=== PATIENT | male | born 1945 | race Caucasian/White ===

== ENCOUNTER 2019-08-01 16:08 | Emergency (ER) | payer MEDICARE, OTHER ==
[~2019-08-01] VITALS: Ht 167.6 cm; Wt 96.2 kg
[2019-08-01] MEDS ORDERED: FLOMAX0.4 MG PO (17:04)
[2019-08-01] MEDS ORDERED: PRAVACHOL40 M1 PO (17:05)
[2019-08-01 17:44] LABS: ABSOLUTE EOSINOPHILS 0.2 thou/uL (0.0-0.7); ABSOLUTE LYMPHOCYTES 0.9 thou/uL (0.8-5.3); ABSOLUTE MONOCYTES 0.7 thou/uL (0.0-1.2); ABSOLUTE NEUTROPHILS 3.2 thou/uL (1.6-8.1); BASOPHILS 0.9 %; EOSINOPHILS 3.6 %; HEMATOCRIT 46.2 % (42.0-52.0); HEMOGLOBIN 15.4 gm/dL (14.0-18.0); LYMPHOCYTES 17.4 %; MCH 29.4 pg (26.0-34.0); MCHC 33.3 g/dL (28.0-37.0); MCV 88.1 fL (80.0-100.0); MONOCYTES 14.5 %; NUCLEATED RBCS 0 /100WBC; PLATELET COUNT* 161 thou/uL (150-400); POLYS 63.6 %; RBC 5.25 mil/uL (4.50-6.00)
[2019-08-01 17:58] LABS: CALCIUM 8.7 mg/dL (8.5-10.1); CREATININE 1.3 mg/dL (0.6-1.3); POTASSIUM 4.3 mmol/L (3.5-5.1)
[2019-08-01 18:09] LABS: ALBUMIN 4.1 g/dL (3.4-5.0); TOTAL BILIRUBIN 0.5 mg/dL (<0.1-1.0)
[2019-08-01] MEDS ORDERED: MEDROLDOSEPACK PO (18:24)
[2019-08-01] MEDS ORDERED: AZITHROMYCIN 2250 MG PO (18:24)
[2019-08-01] MEDS ORDERED: VENTOLIN HFA 1818 GM INH (18:24)
[2019-08-01 18:47] LABS: INFLUENZA A ANTIGEN Negative (Negative); INFLUENZA B ANTIGEN Negative (Negative)
[2019-08-01 18:55] VITALS: BP 127/79
--- NOTE | 2019-08-02 10:30 | EKG ---
[place] [address] ELECTROCARDIOGRAM REPORT Name: DEVI TREJO Room: [facility]#: [id number] Admission: 08/01/19 Attend Phys: Discharge: 08/01/19 Date of : 49 Report #: [id number] THIS REPORT FOR: //name// [facility] ED Test Date: 2019-08-01 Test Time: 17:36:03 Pat Name: DEVI TREJO Department: Room: Gender: M Bicycle Repairman: : 1945 Requested By: Musa Burnette Order Number: [id number] MD: Joel Stark Measurements Intervals [place] Rate: 80 P: 36 CT: 150 QRS: 45 QRSD: 100 T: 47 QT: 385 QTc: 445 Interpretive Statements Sinus rhythm Nonspecific T abnormalities, anterior leads Baseline wander in lead(s) I,V1,V2,V3 No previous ECG available for comparison Electronically Signed On 08-02-2019 10:30:30 REIMBURSEMENT SPEC by Joel Stark [email or web address] <ELECTRONICALLY SIGNED> By: Joel Stark MD, [facility] 08/02/19 1030 173 173 Joel Stark MD, FACC /EPI
== END 2019-08-01 18:56 | disposition home or self-care (01) ==
LOC: M.ERS 16:08
PROVIDERS: Emergency Medicine
DX: J18.9 Pneumonia, unspecified organism (principal); E78.00 Pure hypercholesterolemia, unspecified; Z88.0 Allergy status to penicillin

== ENCOUNTER → 2019-08-01 | Outpatient (CLI) | payer MEDICARE, OTHER ==
[~2019-08-01] MED LIST: AZITHROMYCIN 2250 MG PO; FLOMAX0.4 MG PO; MEDROLDOSEPACK PO; PRAVACHOL40 M1 PO; VENTOLIN HFA 1818 GM INH
== END ==
LOC: M.CT 10:30
DX: R91.8 Other nonspecific abnormal finding of lung field (principal)

== ENCOUNTER → 2019-10-31 | Outpatient (CLI) | payer MEDICARE, OTHER ==
[2019-10-31 10:03] LABS: CREATININE 1.1 mg/dL (0.6-1.3)
== END ==
LOC: M.LAB 09:39 → M.CT 11:00
DX: J43.9 Emphysema, unspecified (principal); R91.1 Solitary pulmonary nodule

== ENCOUNTER 2021-07-13 12:51 | Inpatient (IN) | payer MEDICARE ==
[~2021-07-13] VITALS: Ht 170.2 cm; Wt 95.3 kg
[2021-07-13 13:06] VITALS: BP 140/84
[2021-07-13] MEDS ORDERED: FOLIC ACID1 MG PO (13:09)
[2021-07-13] MEDS ORDERED: D3-200050 MCG PO (13:09)
[2021-07-13] MEDS ORDERED: FISH OIL 1,0001 EAC9 PO (13:09)
[2021-07-13] MEDS ORDERED: ASPIRIN EC81 M1 PO (13:09)
[2021-07-13] MEDS ORDERED: MAGNESIUM250 M1 PO (13:10)
[2021-07-13] MEDS ORDERED: ZINC50 M2 PO (13:10)
[2021-07-13] MEDS ORDERED: ALEVE220 MG PO (13:10)
[2021-07-13 13:23] LABS: ABSOLUTE LYMPHOCYTES 0.9 thou/uL (0.8-5.3); ABSOLUTE MONOCYTES 0.6 thou/uL (0.0-1.2); ABSOLUTE NEUTROPHILS 5.3 thou/uL (1.6-8.1); BASOPHILS 0.2 %; EOSINOPHILS 0.5 %; HEMATOCRIT 42.5 % (42.0-52.0); HEMOGLOBIN 14.6 gm/dL (14.0-18.0); LYMPHOCYTES 13.3 %; MCHC 34.4 g/dL (28.0-37.0); MCV 84.5 fL (80.0-100.0); MONOCYTES 8.2 %; MPV 7.3 fl. (7.2-11.1); NUCLEATED RBCS 0 /100WBC; PLATELET COUNT* 222 thou/uL (150-400); POLYS 77.8 %; RBC 5.03 mil/uL (4.50-6.00); RDW-CV 13.8 % (10.5-14.5); WBC 6.9 thou/uL (4.0-11.0)
[2021-07-13 13:57] LABS: ALBUMIN 2.5 g/dL (3.4-5.0); CALCIUM 8.6 mg/dL (8.5-10.1); CREATININE 1.1 mg/dL (0.6-1.3); TOTAL BILIRUBIN 1.7 mg/dL (<0.1-1.0); TOTAL PROTEIN 7.4 g/dL (6.4-8.2)
[2021-07-13 14:03] LABS: URINE BLOOD NEGATIVE (Negative); URINE CLARITY CLEAR; URINE COLOR YELLOW; URINE GLUCOSE-RANDOM NEGATIVE (Negative); URINE KETONES TRACE (Negative); URINE LEUKOCYTES-REFLEX NEGATIVE (Negative); URINE NITRITE-REFLEX NEGATIVE (Negative); URINE PROTEIN 2+ (Negative); URINE SPECIFIC GRAVITY 1.015 (1.005-1.030)
[2021-07-13 14:11] LABS: URINE BILIRUBIN 1+ (Negative)
[2021-07-13 14:18] LABS: MUCUS 0-3 Light strn/LPF (None Seen); SQUAMOUS 0-3 Few /LPF (0-3); URINE RBC 0-2 Rare /HPF (0-2); URINE WBC-REFLEX 0-5 Rare /HPF (0-5)
[2021-07-13 14:23] LABS: BACTERIA-REFLEX None Seen /HPF (None Seen); CASTS None Seen /LPF (None Seen); CRYSTALS None Seen /LPF (None Seen)
--- NOTE | 2021-07-13 15:05 | NUR ---
CALLED CHRISTINA TREJO AND GAVE UP DATE ON DEVI.
--- NOTE | 2021-07-13 15:39 | EKG ---
[place] [address] ELECTROCARDIOGRAM REPORT Name: DEVI TREJO Room: [place] [address] ADM IN [facility]#: [id number] Admission: 07/13/21 Attend Phys: Moustapha Linton, Discharge: Date of : 49 Date of Service: 07/13/21 1313 Report #: [id number] THIS REPORT FOR: //name// [facility] ED Test Date: 2021-07-13 Test Time: 13:13:53 Pat Name: DEVI TREJO Department: Room: [facility] Gender: M Line Out Man: PADMA : 1945 Requested By: Aron Moncada Order Number: [id number] MD: Joel Stark Measurements Intervals [place] Rate: 74 P: 48 RI: 163 QRS: 11 QRSD: 89 T: 49 QT: 377 QTc: 419 Interpretive Statements Sinus arrhythmia nonspecific t wave changes Baseline wander in lead(s) III Compared to ECG 08/01/2019 17:36:03 no change Electronically Signed On 07-13-2021 15:39:33 RADIO ENGINEER by Joel Stark [email or web address] <ELECTRONICALLY SIGNED> By: Joel Stark MD, FAC 07/13/21 1539 1313 1313 Joel Stark MD, [facility] /EPI
[2021-07-13 17:52] LABS: INFLUENZA A ANTIGEN Negative (Negative); INFLUENZA B ANTIGEN Negative (Negative)
[2021-07-13 18:25] VITALS: BP 124/73
[2021-07-14 00:01] VITALS: BP 119/89
--- NOTE | 2021-07-14 00:55 | NUR ---
PATIENT PLACED IN HOSPITAL BED
[2021-07-14 03:36] LABS: ABSOLUTE LYMPHOCYTES 0.7 thou/uL (0.8-5.3); ABSOLUTE MONOCYTES 0.4 thou/uL (0.0-1.2); BASOPHILS 0.4 %; HEMATOCRIT 41.7 % (42.0-52.0); HEMOGLOBIN 14.4 gm/dL (14.0-18.0); LYMPHOCYTES 13.5 %; MCH 29.5 pg (26.0-34.0); MCHC 34.6 g/dL (28.0-37.0); MCV 85.5 fL (80.0-100.0); MONOCYTES 8.4 %; MPV 6.8 fl. (7.2-11.1); NUCLEATED RBCS 0 /100WBC; PLATELET COUNT* 256 thou/uL (150-400); POLYS 77.7 %; RBC 4.88 mil/uL (4.50-6.00); WBC 5.1 thou/uL (4.0-11.0)
[2021-07-14 03:58] LABS: CALCIUM 8.7 mg/dL (8.5-10.1); CREATININE 1.1 mg/dL (0.6-1.3); POTASSIUM 4.6 mmol/L (3.5-5.1)
--- NOTE | 2021-07-14 07:35 | NUR ---
PT GIVEN HEART HEALTHY DIET BREAKFAST TRAY AT THIS TIME.
--- NOTE | 2021-07-14 08:19 | NUR ---
PT ORIENTED TO ROOM AND UNIT, BED LOW AND LOCKED, SIDE RAILS UPX3, CALL LIGHT IN REACH, TELE APPLIED. WILL CONTINUE TO ASSESS.
[2021-07-14 08:43] VITALS: BP 125/81
--- NOTE | 2021-07-14 10:25 | NUR ---
Infection Control: Per [facility] patient had a positive Covid PCR test on 07/05/21.
[2021-07-14 12:00] VITALS: BP 131/81
--- NOTE | 2021-07-14 14:14 | NUR ---
PT OXYEN REQUIREMENT INCREASE TO 4LNC. OBTAIN PULMONARY CONSULT AND WILL HAVE RT INSTRUCT ON USE OF INCENTIVE SPIROMETER.
[2021-07-14 16:00] VITALS: BP 126/82
[2021-07-14 20:00] VITALS: BP 153/85
[2021-07-15 00:45] VITALS: BP 140/89
[2021-07-15 04:00] VITALS: BP 120/69
[2021-07-15 04:13] LABS: APTT 26.4 Seconds (25.0-31.3); PROTIME 10.5 Seconds (9.20-11.50)
[2021-07-15 04:29] LABS: ALBUMIN 2.8 g/dL (3.4-5.0); CALCIUM 8.6 mg/dL (8.5-10.1); CREATININE 1.2 mg/dL (0.6-1.3); MAGNESIUM 2.1 mg/dL (1.8-2.4); POTASSIUM 4.4 mmol/L (3.5-5.1); TOTAL BILIRUBIN 1.3 mg/dL (<0.1-1.0); TOTAL PROTEIN 6.6 g/dL (6.4-8.2)
[2021-07-15 04:31] LABS: ABSOLUTE LYMPHOCYTES 1.4 thou/uL (0.8-5.3); ABSOLUTE MONOCYTES 0.8 thou/uL (0.0-1.2); ABSOLUTE NEUTROPHILS 5.5 thou/uL (1.6-8.1); BASOPHILS 0.1 %; HEMATOCRIT 40.7 % (42.0-52.0); HEMOGLOBIN 13.9 gm/dL (14.0-18.0); LYMPHOCYTES 17.8 %; MCH 29.2 pg (26.0-34.0); MCHC 34.3 g/dL (28.0-37.0); MCV 85.2 fL (80.0-100.0); MONOCYTES 10.4 %; MPV 7.3 fl. (7.2-11.1); NUCLEATED RBCS 0 /100WBC; POLYS 71.7 %; RBC 4.78 mil/uL (4.50-6.00); RDW-CV 13.9 % (10.5-14.5); WBC 7.6 thou/uL (4.0-11.0)
--- NOTE | 2021-07-15 04:50 | NUR ---
PT ALERT AND ORIENTED, RESTING COMFORTABLY IN BED, OXYGEN AT 4L-NC AT 92-93%. HE IS UP AD NAOMI TO RESTROOM AND VERY STABLE. NO COMPLAINTS OF PAIN/NAUSEA/VOMITING. HE RECEIVED ABX AND MEDS SCHEDULED. NPO SINCE MIDNIGHT. WILL CONTINUE TO MONITOR.
[2021-07-15 05:28] LABS: PLATELET COUNT* 333 thou/uL (150-400)
[2021-07-15 08:00] VITALS: BP 109/78
--- NOTE | 2021-07-15 10:06 | NUR ---
UPDATED PTS VIA PHONE CALL. ANSWERED ALL QUESTIONS.
[2021-07-15 12:29] VITALS: BP 129/76
[2021-07-15 16:07] VITALS: BP 111/74
--- NOTE | 2021-07-15 18:09 | NUR ---
UPDATED PTS VIA PHONE. ANSWERED ALL QUESTIONS. PTS HAD THIS RN ON SPEAKER WITH PTS SON, UPDATED WELL W PT PERMISSION
--- NOTE | 2021-07-15 18:12 | NUR ---
PT BETWEEN 3-4L O2 THIS SHIFT VIA NC. UP AD NAOMI. NO CHANGES IN ORIENTATION OR RHYTHM. PLAN CONTINUE TO WEAN O2 ABLE, ENCOURAGE INCENTIVE SPIROMETER, AMBULATE. PT HSC ON D/C
[2021-07-15 20:00] VITALS: BP 121/79
[2021-07-16] VITALS (7 sets, daily range): BP systolic 103–144; BP diastolic 65–85
[2021-07-16 04:03] LABS: ABSOLUTE LYMPHOCYTES 1.4 thou/uL (0.8-5.3); ABSOLUTE MONOCYTES 0.8 thou/uL (0.0-1.2); ABSOLUTE NEUTROPHILS 4.7 thou/uL (1.6-8.1); BASOPHILS 0.1 %; EOSINOPHILS 0.1 %; HEMATOCRIT 38.7 % (42.0-52.0); HEMOGLOBIN 13.1 gm/dL (14.0-18.0); LYMPHOCYTES 19.7 %; MCH 29.1 pg (26.0-34.0); MCV 85.7 fL (80.0-100.0); MPV 7.1 fl. (7.2-11.1); NUCLEATED RBCS 0 /100WBC; PLATELET COUNT* 329 thou/uL (150-400); POLYS 68.1 %; RBC 4.52 mil/uL (4.50-6.00); RDW-CV 13.8 % (10.5-14.5); WBC 6.9 thou/uL (4.0-11.0)
[2021-07-16 04:14] LABS: ALBUMIN 2.6 g/dL (3.4-5.0); CALCIUM 8.6 mg/dL (8.5-10.1); CREATININE 1.3 mg/dL (0.6-1.3); POTASSIUM 4.3 mmol/L (3.5-5.1); TOTAL BILIRUBIN 1.3 mg/dL (<0.1-1.0); TOTAL PROTEIN 6.4 g/dL (6.4-8.2)
[2021-07-16 04:25] LABS: PREALBUMIN 20.3 mg/dL (18.0-35.7)
--- NOTE | 2021-07-16 04:57 | NUR ---
PT ALERT AND ORIENTED, 3L-O2 NC. RECEIVED ALL MEDS/ABX SCHEDULED. HE SLEPT VERY WELL THIS SHIFT. NO REPORTS OF ANY PAIN N/V. HE IS UP AD NAOMI TO RESTROOM
--- NOTE | 2021-07-16 07:56 | NUR ---
THIS RN WENT INTO PTS ROOM FOR AM VITALS. HE EXPLAINED TO THIS RN THAT AROUND 6 TO 6:30 AM, PRIOR TO THIS RN SHIFT AND STILL ON MANAGER BENEFIT, HE 'PASSED OUT IN THE BATHROOM, WOKE UP ON THE GROUND HALF IN THE SHOWER, BY THE SINK.' PT STATED HE DID NOT THINK HE HIT HIS HEAD BUT WAS UNSURE. ALERT, ORIENTED X4. ASSESSMENT UNCHANGED FROM PRIOR SHIFT EXCEPT FOR SKIN TEAR L FOREARM, DRIED, NOT ACTIVELY BLEEDING. LAILA, RAIL SIGNAL DESIGNER NOTIFIED. PTS WAS ON THE PHONE WITH PT WHILE PT TOLD THIS RN; THEREFORE IS NOTIFEID. DR PARKS PAGED AT THIS TIME.
--- NOTE | 2021-07-16 11:22 | NUR ---
PTS FIRST POSITIVE COVID TEST WAS ON JUL 05, THEREFORE OUT OF ISOLATION. DIETARY NOTIFEID. PT NOTIFIED. SUPERVISOR WOOL SHEARING GOYO NOTIFIED.
[2021-07-16 15:48] LABS: CALCIUM 8.7 mg/dL (8.5-10.1); CREATININE 1.2 mg/dL (0.6-1.3); POTASSIUM 4.6 mmol/L (3.5-5.1)
--- NOTE | 2021-07-16 18:17 | NUR ---
NO ACUTE CHANGES THIS SHIFT. PT REMAINS ON 4L O2. NO BRADYCARDIA EVENTS ON TELE. PT OUT OF ISOLATION THIS SHIFT, CAME TO VISIT. PLAN FOR LABS, CXR IN AM, WALKING O2 STUDY, AND POSSIBLE D/C TOMORROW.
[2021-07-16 23:06] LABS: MYCOPLASMA PNEUMONIA IgG 267 U/mL (0-99); MYCOPLASMA PNEUMONIA IgM <770 U/mL (0-769)
[2021-07-17 00:24] VITALS: BP 151/70
[2021-07-17 04:20] LABS: ABSOLUTE LYMPHOCYTES 1.4 thou/uL (0.8-5.3); ABSOLUTE NEUTROPHILS 5.7 thou/uL (1.6-8.1); BASOPHILS 0.1 %; EOSINOPHILS 0.1 %; HEMATOCRIT 37.2 % (42.0-52.0); HEMOGLOBIN 12.7 gm/dL (14.0-18.0); LYMPHOCYTES 17.5 %; MCH 28.9 pg (26.0-34.0); MCHC 34.2 g/dL (28.0-37.0); MCV 84.6 fL (80.0-100.0); MONOCYTES 11.9 %; MPV 7.2 fl. (7.2-11.1); NUCLEATED RBCS 0 /100WBC; PLATELET COUNT* 342 thou/uL (150-400); POLYS 70.4 %; RDW-CV 13.9 % (10.5-14.5); WBC 8.1 thou/uL (4.0-11.0)
[2021-07-17 04:26] LABS: ALBUMIN 2.6 g/dL (3.4-5.0); CALCIUM 8.5 mg/dL (8.5-10.1); CREATININE 1.1 mg/dL (0.6-1.3); PHOSPHORUS* 3.8 mg/dL (2.5-4.9); POTASSIUM 3.9 mmol/L (3.5-5.1); TOTAL BILIRUBIN 1.3 mg/dL (<0.1-1.0); TOTAL PROTEIN 6.3 g/dL (6.4-8.2)
[2021-07-17 04:47] VITALS: BP 127/63
--- NOTE | 2021-07-17 06:29 | NUR ---
Alert and oriented x 4. He is on O2 at 4L n/c and up with stand by assist. He has voided per urinal. No complaints of pain. He hasn't seemed to sleep that much this shift. Vitals are stable,HR stable.
[2021-07-17 09:00] VITALS: BP 128/48
[2021-07-17] MEDS ORDERED: TESSALON PERLE100 MG PO (09:37)
[2021-07-17] MEDS ORDERED: PREDNISONE 10 M10 MG PO (09:38)
[2021-07-17] MEDS ORDERED: PROAIR HFA8.5 GM INH (09:38)
[2021-07-17] MEDS ORDERED: LEVOFLOXACIN500 MG PO (09:38)
[2021-07-17 12:00] VITALS: BP 105/57
[2021-07-17 15:51] VITALS: BP 105/57
--- NOTE | 2021-07-19 16:22 | CON ---
[address] [address] CONSULTATION Name: DEVI TREJO Esperanza Room: [address] IN .R.#: [id number] Admission: 07/13/21 Attend Phys: Moustapha Linton MD Discharge: 07/17/21 Date of : 49 Report #: [id number] THIS REPORT FOR: cc: Papito Doyle Steve T. DO Pervez, Adeel MD ~ DATE OF CONSULTATION: 07/14/2021 REQUESTING PHYSICIAN: Moustapha Linton MD INDICATION FOR CONSULTATION: Acute hypoxemic respiratory failure secondary to COVID-19. HISTORY OF PRESENT ILLNESS: A 75-year-old gentleman. He has no known history of smoking and does not have a history of a cardiac or respiratory disease in the past. He has not been vaccinated for COVID-19. The patient is reported to have tested positive to COVID-19 as an outpatient on 07/05. He is not reported to have had any medications for this prior to this admission. The patient currently is hypoxemic on room air. He is, however, saturating 92% on 3 liters nasal cannula. He is hemodynamically stable. He is not febrile. He does have shortness of breath at rest. He does have a cough. He has small amounts of clear and white sputum. No chest pain. Does not have upper respiratory complaints. No swelling of lower extremities or calf pain. The patient appears to be fairly anxious. He is particularly anxious about having a reaction to any of the medications he received. He is particularly worried about remdesivir; however, he has agreed to receive the medication. The patient does have a mild LFTs elevation on the lab work yesterday and he did have a CTA chest performed yesterday, which shows bilateral infiltrates, some of these are fairly dense and lobar and not typical for COVID-19. REVIEW OF SYSTEMS: The patient's review of systems for 12 points is negative except as mentioned above. PAST MEDICAL HISTORY: Shoulder surgery, hand surgery, hyperlipidemia, benign prostatic hypertrophy. SOCIAL HISTORY: Lifetime nonsmoker. No known history of heavy alcohol use or illegal drug use. CURRENT MEDICATIONS: List in [facility] reviewed. HOME MEDICATIONS: List also in [facility] reviewed. FAMILY HISTORY: [place] [address] CONSULTATION Name: DEVI TREJO Room: [address]#: [id number] Admission: 07/13/21 Attend Phys: Moustapha Linton MD Discharge: 07/17/21 Date of : 49 Report #: [id number] ALLERGIES: THE PATIENT STATES THAT HE SWELLED UP MANY YEARS AGO AFTER RECEIVING PENICILLIN. PHYSICAL EXAMINATION: GENERAL: He is alert, awake and oriented. VITAL SIGNS: Has a pulse of 97 and a blood pressure of 126/82. He is saturating 92%. He is on 3 liters nasal cannula. Respiratory rate is around 16-17. He is afebrile with a temperature of 36.4. HEENT: Head is normocephalic and atraumatic. NECK: Does not show raised JVP. CHEST: Breath sounds are bilaterally equal. No added sounds. HEART: Regular. No murmur. ABDOMEN: Soft and nontender. EXTREMITIES: Lower extremities, no edema and no calf tenderness. LABORATORY DATA: CTA chest as discussed above. Lab work also as discussed above. His COVID-19 PCR is pending. Antigen at our hospital was negative. He is reported to be positive for COVID-19 previously. ASSESSMENT/PLAN: 1. Acute hypoxemic respiratory failure secondary to COVID-19. Continue to titrate oxygen, out of bed to chair as tolerated. Avoid sleeping supine, prone position preferred. We will also go ahead and give him Brovana. 2. COVID-19. He is on dexamethasone at 6 mg daily. We will continue the same. The patient had already agreed to remdesivir before I saw him. He will say that he is anxious about side effects. There is elevation in LFTs as above; however, the potential benefit of remdesivir, still does appear to outweigh risks and therefore, I recommend that we proceed. However, we will watch LFTs closely. 3. Lobar pulmonary infiltrates. These are noted on CT. These are consistent with a secondary bacterial infection and not typical for COVID; therefore, I would like to give him more strep and gram-negative coverage. The patient is already on doxycycline and he is worried about having reactions to medications. Likely, he will tolerate cephalosporins, but it is for this reason that I give him Levaquin instead. For now, we will also continue with doxycycline for providing some MRSA coverage as well. More cultures and serologies are ordered. If nasal swab for MRSA and sputum culture negative for MRSA and he improves, then later on we can discontinue doxycycline and only continuing Levaquin. 4. Elevated liver function tests. Recommend obtaining a right upper quadrant ultrasound. Also, recommend checking a lipase level. Still we will proceed with remdesivir as above and follow LFTs. 5. Deep vein thrombosis prophylaxis. He is on Lovenox. 6. Clostridium difficile prophylaxis, Lactinex. [address] [place] [address] CONSULTATION Name: DEVI TREJO Esperanza Room: [address]#: [id number] Admission: 07/13/21 Attend Phys: Moustapha Linton MD Discharge: 07/17/21 Date of : 49 Report #: [id number] 7. Hyperglycemia already on an insulin sliding scale. 8. Gastrointestinal prophylaxis. He is already on Protonix. Thanks for this consultation. <ELECTRONICALLY SIGNED> By: Dylon Barajas MD 07/19/21 1622 1735 [id number] Barajas MD /nt
== END 2021-07-17 17:32 | disposition home or self-care (01) | DRG 177 ==
LOC: M.ERS 12:51 → M.TBA-ER 14:25 → M.ORTHSURG 14:25
PROVIDERS: Emergency Medicine Emergency Medical Services; Internal Medicine; Internal Medicine Critical Care Medicine; ADMIT Internal Medicine; ATTEND Internal Medicine
PROC: XW033E5 Introduction of Remdesivir Anti-infective into Peripheral Vein, Percutaneous Approach, New Technology Group 5 (ICD-10-PCS; principal; 2021-07-13)
DX: U07.1 COVID-19 (principal); J96.01 Acute respiratory failure with hypoxia; J12.82 Pneumonia due to coronavirus disease 2019; I10 Essential (primary) hypertension; M19.90 Unspecified osteoarthritis, unspecified site; Z88.0 Allergy status to penicillin; E78.5 Hyperlipidemia, unspecified; N40.0 Benign prostatic hyperplasia without lower urinary tract symptoms